=== PATIENT | male | born 1995 | race Caucasian/White ===

== ENCOUNTER 2017-08-14 11:34 | Emergency (ER) | payer OTHER ==
[~2017-08-14] VITALS: Ht 167.6 cm; Wt 70.3 kg
[~2017-08-14 11:34] MED LIST: ACETAMINOPHEN-1 EAC1 PO; IBUPROFEN 800800 MG PO; ROBAXIN500 MG PO; ZOFRAN4 MG PO
[2017-08-14] MEDS ORDERED: IBUPROFEN 600600 M1 PO (12:44)
[2017-08-14 12:52] VITALS: BP 121/66
== END 2017-08-14 12:52 | disposition home or self-care (01) ==
LOC: M.ERS 11:34
DX: S60.211A Contusion of right wrist, initial encounter (principal); F17.210 Nicotine dependence, cigarettes, uncomplicated; Z88.1 Allergy status to other antibiotic agents; X58.XXXA Exposure to other specified factors, initial encounter; Y93.89 Activity, other specified; Y92.89 Other specified places as the place of occurrence of the external cause; Y99.8 Other external cause status